=== PATIENT | female | born 1960 ===

== ENCOUNTER 2021-02-11 10:44 | Day surgery (SDC) | payer OTHER ==
[~2021-02-11 10:44] MED LIST: CALCIUM 600 +1 EAC3 PO; CRESTOR10 MG PO; FLAX SEED OIL1 EACH PO; LOSARTAN-HCTZ1 EAC2 PO; VITACEL TABLET1 EACH PO
== END 2021-02-11 19:35 | disposition home or self-care (01) ==
LOC: CIR.AMB 10:44
PROVIDERS: ATTEND Obstetrics & Gynecology Obstetrics
DX: C54.1 Malignant neoplasm of endometrium (principal); Z20.822 Contact with and (suspected) exposure to COVID-19

== ENCOUNTER 2021-04-23 08:45 | Inpatient (IN) | payer OTHER ==
[~2021-04-23] VITALS: Ht 157.5 cm; Wt 57.6 kg
[2021-04-25] MEDS ORDERED: OMEPRAZOLE20 MG (11:32)
[2021-04-25] MEDS ORDERED: LOSARTAN POTASS50 MG (11:32)
== END 2021-04-26 12:49 | disposition home or self-care (01) | DRG 741 ==
LOC: SURG-SUITE 04-25 06:40 → O/R 04-25 06:40 → SURH 04-25 08:45 → SURG-SUITE 04-25 15:10 → SURH 04-25 21:30 → SURG-SUITE 04-26 12:49
PROVIDERS: Surgery; ADMIT Obstetrics & Gynecology Gynecologic Oncology; ATTEND Obstetrics & Gynecology Gynecologic Oncology
PROC: 0UT74ZZ Resection of Bilateral Fallopian Tubes, Percutaneous Endoscopic Approach (ICD-10-PCS; 2021-04-25)
PROC: 07BC4ZZ Excision of Pelvis Lymphatic, Percutaneous Endoscopic Approach (ICD-10-PCS; 2021-04-25)
PROC: 0DTJ4ZZ Resection of Appendix, Percutaneous Endoscopic Approach (ICD-10-PCS; 2021-04-25)
PROC: 0DTH4ZZ Resection of Cecum, Percutaneous Endoscopic Approach (ICD-10-PCS; 2021-04-25)
PROC: 0UT94ZZ Resection of Uterus, Percutaneous Endoscopic Approach (ICD-10-PCS; principal; 2021-04-25 21:30)
PROC: 0UT24ZZ Resection of Bilateral Ovaries, Percutaneous Endoscopic Approach (ICD-10-PCS; 2021-04-25 21:30)
DX: C54.1 Malignant neoplasm of endometrium (principal); D12.1 Benign neoplasm of appendix; K38.8 Other specified diseases of appendix; D36.0 Benign neoplasm of lymph nodes; N80.0 Endometriosis of uterus; I10 Essential (primary) hypertension; E78.00 Pure hypercholesterolemia, unspecified

== ENCOUNTER 2022-09-26 14:53 | Inpatient (IN) | payer OTHER ==
[~2022-09-26] VITALS: Ht 157.5 cm; Wt 59.0 kg
[~2022-09-26 14:53] MED LIST changes: +LOSARTAN POTASS50 MG; +OMEPRAZOLE20 MG
--- NOTE | 2022-09-26 15:19 | NUR ---
PACIENTE ALERTA Y ORIENTADA POR EMANUEL. REFIERE DOLOR PELVICO DESDE EL MIERCOLES QUE LE REALIZARON FRANKY COLONOSCOPIA. REFIERE AL PUJAR SALE TEJIDO CON TRAZAS DE FIORDALIZA.
--- NOTE | 2022-09-26 17:11 | NUR ---
PTE ALERTA Y ORIENTADA X3. CAMA BAJA, BARANDAS ELEVADAS. SE CANALIZA EN MANO DERECHA #18 RECIBIENDO .9NSS BAJANDO A 120ML/HR. SE COLECTAN MUESTRAS DE FIORDALIZA Y SE ADMINISTRAN MEDICAMENTOS POR ORDEN MEDICA. SE ENTREGA CONTRASTE Y SE ORIENTA SOBRE TRATAMIENTO, REFIERE ENTENDER
--- NOTE | 2022-09-26 20:17 | NUR ---
SE ADMINISTRA MEDICAMENTOS POR ORDEN MEDICA
[2022-09-29] MEDS ORDERED: AMLODIPINE BESYL5 MG (13:08)
[2022-09-29] MEDS ORDERED: METRONIDAZOLE500 MG PO (15:55)
[2022-09-29] MEDS ORDERED: CIPRO500 MG PO (15:55)
[2022-09-29] MEDS ORDERED: INTESTINEX680 M1 PO (15:56)
== END 2022-09-29 16:57 | disposition home or self-care (01) | DRG 392 ==
LOC: ER 14:53 → SURH 22:38
PROVIDERS: ADMIT Surgery; ATTEND Surgery
PROC: BW21ZZZ Computerized Tomography (CT Scan) of Abdomen and Pelvis (ICD-10-PCS; principal; 2022-09-26)
DX: K52.89 Other specified noninfective gastroenteritis and colitis (principal); K62.5 Hemorrhage of anus and rectum; K64.8 Other hemorrhoids; I10 Essential (primary) hypertension; C54.1 Malignant neoplasm of endometrium; Z20.822 Contact with and (suspected) exposure to COVID-19

== ENCOUNTER 2025-03-09 15:55 | Outpatient (CLI) | payer OTHER ==
[~2025-03-09 15:55] MED LIST changes: +AMLODIPINE BESYL5 MG; +CIPRO500 MG PO; +INTESTINEX680 M1 PO; +METRONIDAZOLE500 MG PO
== END 2025-03-09 15:57 | disposition home or self-care (01) ==
LOC: SONOGRAMA 15:55
PROVIDERS: ATTEND Pathology Anatomic Pathology
DX: D44.0 Neoplasm of uncertain behavior of thyroid gland (principal); E04.2 Nontoxic multinodular goiter